=== PATIENT | female | born 1980 | race Caucasian/White ===

== ENCOUNTER → 2017-11-22 | Outpatient (CLI) | payer OTHER ==
[~2017-11-22] VITALS: Ht 167.6 cm; Wt 112.8 kg
[~2017-11-22] MED LIST: CLON0.5T3 PO; MULTTAB58 PO; OMEG10007 PO; PRED20TA PO; SERT-234 PO; SERT50TA PO; TRAZ50TA35 PO; XNX25 PO; b complex PO
[2017-11-22 14:54] VITALS: BP 110/76; PULSE 94; Ht 167.6 cm; Wt 112.8 kg
== END | disposition home or self-care (01) ==
LOC: C.NEUR 14:20
PROVIDERS: ATTEND Internal Medicine Pulmonary Disease
DX: R53.83 Other fatigue (principal); F45.8 Other somatoform disorders; F31.81 Bipolar II disorder; F51.01 Primary insomnia; G47.19 Other hypersomnia

== ENCOUNTER → 2017-12-03 | Outpatient (CLI) | payer OTHER ==
--- NOTE | 2017-12-04 06:03 | PAP/PSG TECHNICIAN REPORT ---
[facility] Laboratory Director Polysomnogram Report Study name: None Report date: 12/04/2017 Study date: 12/03/2017 Referring Physician: DR. MADRIGAL Name: CRISTINA SOSA Interpreting Physician: Osmany Madrigal M.D. Date of : 1980 Laboratory Director: BRANDON De La Paz. Sex: Female Age: 37 StudyType: PSG Weight: 248 lbs 16 inches Height: 37 years, Height 5' 6" Neck Circum: BMI: 40.02 Medications: BUSPIRONE HCL 15 MG, CLONAZEPAM 1 MG, LORATADINE 10 MG, SERTRALINE HCL 100 MG, VIT D 1999 Patient History PATIENT HAS HISTORY OF MAJOR DEPRESSION AND BIPOLAR DISORDER. ALSO HAS HISTORY OF FATIGUE, INSOMNIA AND EXCESSIVE DAYTIME SLEEPINESS. SHE IS HERE TODAY FOR AN EVALUATION FOR RAÚL. ESS= 8 RM 6 Parameters Monitored NPSG: E1-M2, E2-M1, Fp1-M2, Fp2-M1, F3-M2, F4-M2, F4-M1, C3-M2, C4-M2, C4-M1, O1-M2, O2-M2, O2-M1, T3-M2, T4-M1, P3-M2, P4-M1, CHIN1, CHIN2, HR, EKG, Legs, PFLOW, SNOR, FLOW, CFLOW, Tidal Volume, THOR, ABDO, SpO2, PLTH, CPRESS, ETCO2 Wave, ETCO2, pH Sleep Architecture Sleep Stages Time at Lights Off 10:40:22 PM STAGES Time (min.) TST (%) Time at Lights On 5:43:22 AM Wake 54.0 -- Total Recording Time (TRT) 423.50 min. N1 9.0 2 Total Sleep Period (TSP) 384.0 min. N2 265.0 72 Total Sleep Time (TST) 369.0min. N3 76.0 21 Awake Time 54.5 min. REM 19.0 5 Wake after Sleep Onset 22.5 min. Sleep Efficiency (SE) 87 % Sleep Onset Latency (HEIDI) 31.5 min. Number of Stage 1 Shifts None Awakenings 7 Stage Changes 35 Number of REM periods 1 REM 19.0 5 REM Latency 365.0 min. NREM 350.0 95 Body Position Analysis Supine Right Left Side Prone Vertical Total Sleep Time (min.) 14.3 210.0 159.0 369.00 0.0 0.0 Total Sleep Time (%) 0% 57% 43% 100 0% N/A% Total Sleep Time REM (min.) 0.0 19.0 0.0 None 0.0 0.0 Total Sleep Time NREM (min.) 0.0 191.0 159.0 None 0.0 0.0 Intermittent Wake (min.) 14.3 32.6 7.1 None 0.0 0.0 Total Sleep Period (%) 0% None None None None None Arousals Myoclonus (PLM) * Events Count Index Events Count Index Spontaneous 13 2 Events Awake (PLMW) 26 28.9 Respiratory 1 0.2 Events Asleep w/ Arousal (PLMA) 13 2.1 PLM 13 2 Events Asleep w/o Arousal (PLMS) 161 26.2 Snoring 5 1 Total Asleep 174 28.3 Total 32 5 Total 200 28 Respiratory Analysis * CA OA MA CH H RERA Total Count 1 0 0 0 18 1 19 Index 0.2 0.0 0.0 0 2.9 0 3.3 Mean Duration 12.0 0.0 0.0 0.00 17.4 15.6 17.0 Longest Duration 12.0 0.0 0.0 0.00 0.0 15.6 31.3 Respiratory Event Summary Total Supine ~Supine Right Left Prone REM NREM Apneas Count 1 N/A 1 1 0 N/A 0 1 Index 0.2 N/A 0 0.3 0.0 N/A 0 0 Hypopneas (4% Desat) Count 18 N/A 18 0 18 N/A 0 18 Index 2.9 N/A 3 0.0 6.8 N/A 0.0 3.1 Apneas & All Hypopneas Count 19 N/A 19 1 18 N/A 0 19 Index 3.1 N/A 3 0 7 N/A 0.0 3.3 Respiratory Events (Advertising Rep+All Hyp+RERA) Count 19 N/A 20 1 19 N/A 0 19 Index 3.3 N/A 3 0.3 7.2 N/A 0.0 3.4 Respiratory Related Arousal Count 1 N/A 1 0 1 N/A 0 1 Index 0.2 N/A 0 0 0 N/A 0 0 Snoring Analysis Supine Right Left Prone REM NREM Total Snore duration 34.7 min Snores count N/A 1,394 94 N/A 0 1,488 1,488 Snore mean duration 1.4 Sec Snores index N/A 398 35 N/A 0.0 255.1 242.0 TST with snoring (%) 9.4% Desaturation Event Summary: Minimum %SpO2 Event Count Mean/Min/Max Duration(sec.) Desaturation Index % Time In Bed > 90 19 32.5 / 13.5 / 58.0 2.8 98.0 86 - 90 0 N/A 0.0 2.0 81 - 85 0 N/A 0.0 0.0 76 - 80 0 N/A 0.0 0.0 71 - 75 0 N/A 0.0 0.0 66 - 70 0 N/A 0.0 0.0 61 - 65 0 N/A 0.0 0.0 56 - 60 0 N/A 0.0 0.0 51 - 55 0 N/A 0.0 0.0 < 50 0 N/A 0.0 0.0 Total REM NREM Awake <50% 0.0 min. 0.0 min. 0.0 min. 0.0 min. 51 - 60% 0.0 min. 0.0 min. 0.0 min. 0.0 min. 61 - 70% 0.0 min. 0.0 min. 0.0 min. 0.0 min. 71 - 80% 0.0 min. 0.0 min. 0.0 min. 0.0 min. 81 - 90% 8.3 min. 0.0 min. 8.3 min. 0.1 min. 91 - 100% 414.4 min. 19.0 min. 341.7 min. 53.7 min. Average 93 93 93 96 Minimum SpO2 87 91 87 90 Desaturation Event Index 2.7 0.0 3.1 1.1 # Desat. Events below 89% 6 N/A 6 N/A Time(%) with Saturation below 89% 0.2 0.0 0.2 0.0 Time(min.) with Saturation below 89% 1.0 0.0 1.0 0.0 Time (mins) REM (mins) NREM (mins) % of TST SpO2 Below 90% 15 N/A N15 0.8 SpO2 Below 88% 3 0 0 0 Heart Rate Analysis Min (bpm) Max (bpm) Average (bpm) Awake 57 127 74 NREM 58 103 74 REM 70 94 82 Overall 58 103 74 Supplemental O2 Values Minimum O2 level: None Value Start Time End Time Laboratory Director Comments Mrs. Sosa slept in the right, left and supine positions. No cardiac arrhythmia noted. Leg movements noted. No bruxism noted. Snoring was noted and scored as a 4 on a scale of 1 through 5. (0=no snoring, 5=snoring loud enough to be heard through a closed door or down the riggs way) Mrs. Sosa awoke to use the restroom 0 times during the night. Mrs. Sosa stated I slept as well as I do when I am in my own bed. The final report will be interpreted and signed by a sleep physician. The completed physician report will then be placed in the patient medical record. Therapy (cm H2O) 0 TIB (min.) 423.0 TST (min.) 369.0 Sleep Onset (min.) 31.5 REM Onset From Sleep (min.) 365.0 Sleep Efficiency % 87 Wakefulness (%) 13 Wakefulness (min.) 54.5 NREM 1 (%) 2 NREM 1 (min.) 9.0 NREM 2 (%) 72 NREM 2 (min.) 265.0 NREM 3 (%) 21 NREM 3 (min.) 76.0 REM (%) 5 REM (min.) 19.0 # Arousals 32 Arousal Index 5 # Snore 1,488 Snore Index 242.0 AHI 3.1 AHI Supine N/A AHI Non-Supine 3 NREM AHI 3.3 REM AHI 0.0 RDI 3.3 # Obstructive Apnea 0 # Central Apnea 1 # Mixed Apnea 0 # Hypopneas 18 RERAs 1 Total Respiratory Events 21 Time Below SpO2 89% (min.) 1.0 Mean NREM SpO2 (%) 93 Mean REM SpO2 (%) 93 Mean Sleep SpO2 (%) 93 Min NREM SpO2 (%) 87 Min REM SpO2 (%) 91 Position Supine (min.) 14.3 Position Non-supine (min.) 369.0 LM Index Sleep 28.3 LM Index NREM 27.1 LM Index REM 50.5 Mean Heart Rate (bpm) 74 Min Heart Rate (bpm) 58
--- NOTE | 2017-12-07 13:56 | POLYSOMNOGRAPH REPORT ---
CLINICAL DATA: A 37-year-old female with BMI of [address] Ayoub and myself for fatigue, insomnia, excessive daytime sleepiness, depression, and bipolar disorder. Her Joseph sleepiness score is 8/24. SLEEP ARCHITECTURE: Total sleep period was 384 minutes. Total sleep time was 369 minutes divided between 350 minutes of non-REM sleep and 19 minutes of REM sleep. Sleep latency was delayed at 31.5 minutes. REM latency was delayed at 365 minutes. Sleep efficiency was 87%. Wake after sleep onset was 22.5 minutes. Sleep consisted of stage N1 2%, stage N2 72%, stage N3 21%, and REM 5%. AROUSAL DATA: 32 arousals were recorded for an index of 5 per hour. PLM DATA: Mildly elevated limb movements during sleep were noted. There were 174 limb movements in sleep for an index of 28.3 per hour with arousal index of 2.1 per hour. RESPIRATORY DATA: There was no evidence of clinically significant sleep apnea seen. The AHI was 3.1. There was 1 central apneic episode, 12 seconds in duration. There were 18 hypopneic episodes with mean duration of 17.4 seconds. OXIMETRY DATA: No significant hypoxemia was seen. Oxygen dco was 87%. Mean saturation was 93%. Time below 88% was 3 minutes. EKG: Heart ranged from 58-103 beats per minute. No arrhythmias were noted. BANKING MANAGEMENT CONSULTING MANAGER'S COMMENTS: The patient slept in the right, left, and supine positions. Snoring was severe, rated 4 on a scale of 1-5. Leg movements were noted throughout the night, which did cause arousal intermittently through the night. IMPRESSION: 1. No evidence of clinically significant sleep apnea/hypopnea or nocturnal hypoxemia. 2. Mildly delayed sleep onset consistent with insomnia. 3. Mildly elevated limb movements during sleep, possibly consistent with PLMD. RECOMMENDATIONS: The patient should continue to practice good sleep hygiene. She should continue on her medications for her depression and insomnia. Consideration workup and treatment for PLMD may be considered. Clinical correlation is needed. ANTHONY
== END | disposition home or self-care (01) ==
LOC: C.NEUR 20:00
PROVIDERS: ATTEND Internal Medicine Pulmonary Disease
DX: F31.81 Bipolar II disorder (principal); F45.8 Other somatoform disorders; R53.83 Other fatigue; F51.01 Primary insomnia

== ENCOUNTER → 2017-12-20 | Outpatient (CLI) | payer OTHER ==
[~2017-12-20] VITALS: Ht 165.1 cm; Wt 109.1 kg
[2017-12-20 15:23] VITALS: BP 135/76; PULSE 87; Ht 165.1 cm; Wt 109.1 kg
== END | disposition home or self-care (01) ==
LOC: C.NEUR 14:50
PROVIDERS: ATTEND Physician Assistant Medical
DX: G47.19 Other hypersomnia (principal); G47.00 Insomnia, unspecified; G47.61 Periodic limb movement disorder

== ENCOUNTER 2021-02-02 11:28 | Observation (INO) ==
--- NOTE | 2021-01-09 09:08 | PAT Medication Instructions ---
Medication Instructions Date of Service January 09, 2021 Home Medications cholecalciferol (vitamin D3) 50 mcg (2,000 unit) tablet 2,000 unit PO QAM clonazepam 1 mg tablet 1 mg PO QAM sertraline 100 mg tablet 200 mg PO HS trazodone 100 mg tablet 100 mg PO HS buspirone 20 mg PO TID lactobacillus comb no.10 [Probiotic] 20,000 mmu cells PO QAM multivitamin 1 tab PO QAM omega-3 fatty acids [[place] 3 Fish Oil] 2,000 mg PO QAM STOP taking 2 weeks before surgery (or as soon as possible if surgery is within 2 weeks) omega-3 fatty acids [Gary 3 Fish Oil] 2,000 mg PO QAM DO NOT take the morning of surgery cholecalciferol (vitamin D3) 50 mcg (2,000 unit) tablet 2,000 unit PO QAM lactobacillus comb no.10 [Probiotic] 20,000 mmu cells PO QAM multivitamin 1 tab PO QAM Take morning of surgery With a small sip of water, OTHERWISE NOTHING TO EAT OR DRINK AFTER MIDNIGHT: clonazepam 1 mg tablet 1 mg PO QAM buspirone 20 mg PO TID Take evening before surgery sertraline 100 mg tablet 200 mg PO HS trazodone 100 mg tablet 100 mg PO HS buspirone 20 mg PO TID Other Notes If you have any questions please call us at [phone] or [phone] or [phone] or [phone]
--- NOTE | 2021-01-09 13:21 | Anesthesiology Consultation ---
Date of Service January 09, 2021 Assessment & Plan (1) Encounter for pre-operative examination: - COVID screening: Per assessment on 01/09: Travel screen negative, no known COVID-19 positive contacts or current COVID-19 related symptoms. Patient fully vaccinated. Surgeon arranging preop COVID testing. Awaiting results. - Check test AM DOS Chart Review Chart Review: Acceptable Risk for Surgery and Patient seen in Pre Admission Testing Teaching & Discussion Pre-Anesthesia Teaching/Discussion Notes: Instructed NPO after midnight before surgery,except medications with 15 cc of water. Medication instructions provided according to the PAT guidelines. History Surgery Operation Date: 02/02/21 07:30 Proposed Procedures p Robotic Total Laparoscopic Hysterectomy - Tracee Mcintyre, Height/Weight Height: 5 ft 6 in Weight: 124.9 kg Allergies Allergy/AdvReac Type Severity Reaction Status Date / Time No Known Drug Allergies Allergy Verified 01/09/21 11:18 Medications Home Medications Medication Instructions Recorded Confirmed Last Taken cholecalciferol (vitamin D3) 50 2,000 unit PO QAM tab 06/05/19 01/09/21 Unknown mcg (2,000 unit) tablet clonazepam 1 mg tablet 1 mg PO QAM tab 06/05/19 01/09/21 Unknown sertraline 100 mg tablet 200 mg PO HS tab 06/05/19 01/09/21 Unknown trazodone 100 mg tablet 100 mg PO HS tab 06/05/19 01/09/21 Unknown buspirone 20 mg PO TID 12/31/20 01/09/21 Unknown lactobacillus comb no.10 20,000 mmu cells PO QAM 12/31/20 01/09/21 Unknown [Probiotic] multivitamin 1 tab PO QAM 12/31/20 01/09/21 Unknown omega-3 fatty acids [[place] 3 Fish 2,000 mg PO QAM 12/31/20 01/09/21 Unknown Oil] Past Medical History Medical History Anxiety 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) based 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/personal hx but no definitive diagnosis History of anemia History of anorexia nervosa Pt does not want to know current weight History of depression Insomnia Morbid obesity Past Family History Family History Mother Endometrial cancer Hypertension Hypothyroidism Breast cancer Bleeding disorder Endometriosis Grandmother (Maternal) Heart disease Dyslipidemia Hypothyroidism Grandmother (Paternal) Heart disease Dyslipidemia Grandfather (Maternal) Heart disease Dyslipidemia Grandfather (Maternal) Heart disease Dyslipidemia Aunt Breast cancer Paternal Past Surgical History Surgical History H/O wisdom tooth extraction History of electroconvulsive therapy (~2017) done with general anesthesia --> successful treatment Past Anesthesia History No Hx of Anesthesia Complications (except PONV) and No Family Hx of Anesthesia Complications History of PONV No Hx of Motion Sickness and History of PONV Social History Smoking Status: Never smoker Do You Dip or Chew Tobacco: No Hx Alcohol Use: Yes alcohol intake frequency: holidays/special occasions only Hx Substance Use: No substance use type: does not use Review of Systems Patient denies chest pain, shortness of breath, dyspnea on exertion, fever, chills, cough, wheezing, palpitations. Physical Exam Vital Signs VITALS BP 123/81 P 76 TEMP 98.4 SP02 96%RA RESP 16 PHYSICAL Full cervical extension range of motion. Full TMJ range of motion. TMD 3.5 finger breaths Mallampati Score 2 Dentition: intact Lungs: clear throughout to auscultation Cardiac: regular rate and rhythm, no murmurs noted Spine: normal Extremities: no edema Patient states she will remove facial piercing for DOS Testing Laboratory Results 01/09/21 14:02 01/09/21 14:02 Urine Color Dark Yellow 01/09/21 Unknown Urine Appearance Turbid (Clear) A 01/09/21 Unknown Urine pH 5.0 (4.5-7.5) 01/09/21 Unknown Ur Specific [place] 1.026 (1.000-1.030) 01/09/21 Unknown Urine Protein Negative (Negative) 01/09/21 Unknown Urine Glucose (UA) Negative (Negative) 01/09/21 Unknown Urine Ketones Trace (Negative) H 01/09/21 Unknown Urine Nitrite Negative (Negative) 01/09/21 Unknown Ur Leukocyte Esterase Negative (Negative) 01/09/21 Unknown Urine WBC (Auto) 1-5 /hpf (0-5) 01/09/21 Unknown Urine RBC (Auto) 0-4 /hpf (0-4) 01/09/21 Unknown U Hyaline Cast (Auto) 1-5 /lpf (0-5) 01/09/21 Unknown U Epithel Cells (Auto) 10-20 /lpf (0-5) H 01/09/21 Unknown Urine Bacteria (Auto) Negative (Negative) 01/09/21 Unknown Blood Type O Positive 01/09/21 14:02 Antibody Screen NEGATIVE 01/09/21 14:02 01/09/21 Unknown Urine Culture - Final Urine,Clean Catch More than three types of organisms present, all low counts mixed probable skin luci. No further identifications or sensitivities to follow. Electrocardiogram Date: 01/14/21 Findings: + NSR @ (55)
[2021-01-09 15:39] LABS: Basophils # (auto) 0.04 K/uL (0-0.2); Basophils % (auto) 0.6 %; Eosinophils # (auto) 0.11 K/uL (0-0.5); Eosinophils % (auto) 1.5 %; Hematocrit (blood only) 37.3 % (37-47); Hemoglobin 13.1 g/dL (12.0-16.0); Immature Granulocytes # (auto) 0.01 K/uL (0.00-0.02); Immature Granulocytes % (auto) 0.1 %; Lymphocytes # (auto) 2.49 K/uL (1.2-3.4); Lymphocytes % (auto) 34.3 %; Mean Corpuscular Hemoglobin 31.4 pg (25-34); Mean Corpuscular Hgb Conc 35.1 g/dL (32-36); Mean Corpuscular Volume 89.4 fL (80-100); Mean Platelet Volume 10.3 fL (7.4-10.4); Monocytes # (auto) 0.64 K/uL (0.11-0.59); Monocytes % (auto) 8.8 %; Neutrophils # (auto) 3.97 K/uL (1.4-6.5); Neutrophils % (auto) 54.7 %; Platelet Count 304 K/uL (130-400); RDW Coefficient of Variation 13.8 % (11.5-14.5); RDW Standard Deviation 45.3 fL (36.4-46.3); Red Blood Count 4.17 M/uL (4.2-5.4); White Blood Count 7.26 K/uL (4.8-10.8)
[2021-01-09 16:07] LABS: BUN Creatinine Ratio 17.1 (10-20); Calcium 9.3 mg/dl (8.5-10.1); Creatinine Clr Calc Pharmacy 120.2 ml/min; Est GFR (African American) 100.8 ml/min; Est GFR (Non-African American) 86.9 ml/min; Potassium 4.2 mmol/L (3.5-5.1)
[2021-01-09 16:14] LABS: Appearance Urine Turbid (Clear); Bacteria Urine Automated Negative (Negative); Bilirubin Urine Negative (Negative); Blood Urine Negative (Negative); Color Urine Dark Yellow; Glucose Urine UA Negative (Negative); Ketones Urine Trace (Negative); Leukocyte Esterase Urine Negative (Negative); Nitrite Urine Negative (Negative); Protein Urine Negative (Negative); RBC Urine Automated 0-4 /hpf (0-4); Specific Gravity Urine 1.026 (1.000-1.030); Urobilinogen Urine Negative (Negative)
[~2021-02-02 11:28] MED LIST changes: -CLON0.5T3 PO; +LR 15ML/HR IV SCH; -MULTTAB58 PO; -OMEG10007 PO; -PRED20TA PO; -SERT-234 PO; -SERT50TA PO; -TRAZ50TA35 PO; -XNX25 PO; -b complex PO
--- NOTE | 2021-02-02 15:24 | History & Physical Bridge Note ---
Date of Service February 02, 2021 History & Physical Bridge Note I have examined the patient, reviewed the History & Physical and in the interval since the performance of the History & Physical I have noted the following changes of clinical significance: no changes noted
[2021-02-02] MEDS ORDERED: ePHEDrine sulfate 50 MG/ML AMP IV PRN (15:31)
[2021-02-02] MEDS ORDERED: ONDANSETRON INJ 2 MG/ML 2 ML VIAL IV PRN ×2 (15:31→18:48)
[2021-02-02] MEDS ORDERED: PROMETHAZINE HCL 6.25 MG in SODIUM CHLORIDE 0.9% 50 ML IV PRN (15:31)
[2021-02-02] MEDS ORDERED: ATROPINE SULFATE 0.1 MG/ML 10ML SYR IV PRN (15:31)
[2021-02-02] MEDS ORDERED: HYDROmorphone INJ 2 MG/ML SYR/VIAL IV PRN (15:31)
[2021-02-02] MEDS ORDERED: fentaNYL citrate 100 MCG/2 ML VIAL ONE ×3 (15:32→17:33)
[2021-02-02] MEDS ORDERED: BUPIVACAINE 0.5 % 5 MG/1 ML MPF 30ML VIAL ONE (15:36)
[2021-02-02] MEDS ORDERED: METHYLENE BLUE 0.5% 10 ML VIAL ONE (15:36)
[2021-02-02] MEDS ORDERED: LIDOCAINE 2% 2 ML VIAL/AMP(20MG/ML) INFIL ONE (15:37)
[2021-02-02] MEDS ORDERED: ROCURONIUM BROMIDE 10 MG/ML 5 ML VIAL IV ONE ×4 (15:37→18:06)
[2021-02-02] MEDS ORDERED: PROPOFOL IV EMULSION 10 MG/ML 20 ML VIAL IV ONE (15:37)
[2021-02-02] MEDS ORDERED: NEOSTIGMINE METHYLSULFATE 1 MG/ML 10ML VIAL ONE (15:37)
[2021-02-02] MEDS ORDERED: GLYCOPYRROLATE 0.2 MG/ML VIAL ONE (15:37)
[2021-02-02] MEDS ORDERED: ONDANSETRON INJ 2 MG/ML 2 ML VIAL ONE ×2 (15:37→18:06)
[2021-02-02] MEDS ORDERED: MIDAZOLAM HCL 1 MG/ML 2ML VIAL ONE (15:38)
[2021-02-02] MEDS ORDERED: TISSEEL FIBRIN SEALANT 10ML TOP ONE (17:14)
[2021-02-02] MEDS ORDERED: KETOROLAC 30 MG/ML VIAL ONE (18:06)
[2021-02-02] MEDS ORDERED: LABETALOL HCL IV 5 MG/ML 20ML IV ONE (18:06)
--- NOTE | 2021-02-02 18:42 | Operative Report ---
PG Post Operative Report Pre & Post Diagnosis Operation Date: 02/02/21 13:30 Pre-Op Diagnosis: Gender Dysphoria Post-Op Diagnosis: Gender Dysphoria I identified the patient and participated in the time-out.: Yes Procedure Operation Date: 02/02/21 13:30 Actual Procedures p Robotic Total Laparoscopic Hysterectomy, Bilateral Salpingectomy, Cystoscopy - Tracee Mcintyre DO Surgeon Tracee Mcintyre DO Fork Repairer Torie Gamble MD Estimated Blood Loss 10 Findings Consistent with Post-Op Diagnosis Normal appearing uterus, tubes, ovaries. Specimens uterus, bilateral fallopian tubes. Drains jaime, clear yellow Anesthesia Type General Complications none Disposition Accompanied Patient To Recovery: No Disposition: Recovery Room Indications 40yo G0 desiring hysterectomy as part of gender confirmation, desire to end menses permanently and without hormones, and h/o JAYASHREE/ASCUS pap. Description of Procedure The patient was seen in the preoperative holding area, where risks benefits and alternatives to surgery reviewed. She elected to proceed with the case. She had previously signed informed consent under no duress in the office. The patient was taken to the operating room, general anesthesia was administered. She was prepared and draped in the usual sterile fashion in the dorsal lithotomy position with feet in yellowfin stirrups. Timeout was confirmed. Jaime catheter was placed in the bladder. A weighted speculum was placed in the vagina, the cervix was visualized and its anterior lip was grasped with single- tooth tenaculum. A stay suture of 0 Vicryl at the 3:00 location on the cervix was placed. The uterine manipulator was placed, and suture tied into place. Gloves were then changed and attention was turned to the abdomen. A supraumbilical incision was made with a scalpel, and using optical scope and direct visualization, the umbilical trocar was placed into the abdomen. Intra- abdominal placement was confirmed visually, and the abdomen was insufflated with CO2 gas to 15 mmHg. The patient was placed in steep Trendelenburg position, and the pelvis was visualized. Pictures were taken. Additional trochars were placed under direct visualization, for a total of 5 incisions. The robot was docked. Salpingectomy was performed first, using cautery to transect the fallopian tube from its mesosalpinx. This was then transected from the uterus, and placed in the pelvic cul-de-sac for later retrieval. Bilateral ureters were visualized in the pelvis peristalsing. Next, the left utero-ovarian ligament was coagulated and transected. The left round ligament was coagulated and transected and the left broad ligament was skeletonized. In a similar fashion, the right sides were taken down. The bladder flap was created, and the anterior leaf of the broad ligament was dissected away from the anterior aspect of the uterus and cervix. The bilateral uterine vessels were coagulated and transected. Next, the uterus was transected from the vagina in a circumferential incision. The uterus was then delivered through the vagina, as well as both fallopian tubes. These were sent to pathology. Coagulation was used to achieve excellent hemostasis. The pelvis was irrigated and suctioned and excellent hemostasis was observed. The vaginal cuff was reapproximated using V-Loc suture in a running stitch. Again, the pelvis was suctioned and irrigated and noted to be hemostatic. Cystoscopy was performed, bilateral ureters were visualized with positive urine flow jets. The bladder was visualized and found to be normal with no trauma. Tisseel coagulant was used across the raw edges of the vaginal cuff. The abdomen was desufflated, trochars were removed. The supraumbilical incision was brought together with a deep subcu stitch of 0 Vicryl. All incisions were made hemostatic with Bovie cautery, and the skin was closed using 4-0 Vicryl. Half percent plain Marcaine was used as local anesthetic at each incision site. The incisions were all covered with Dermabond glue. The patient was awoken from anesthesia, taken to the recovery area in stable and good condition. She tolerated the procedure well. I attest to the content of the Intraoperative Record and any orders documented therein. Any exceptions are noted below. DAIRY PROCESSING SUPERVISOR Major Procedure Codes Hysterectomy 58289 TLH <250g +S/O
[2021-02-02] MEDS ORDERED: SIMETHICONE 80 MG CHEW PO PRN (18:48)
[2021-02-02] MEDS ORDERED: KETOROLAC 30 MG/ML VIAL IV PRN (18:48)
[2021-02-02] MEDS ORDERED: IBUPROFEN 600 MG TAB PO PRN (18:48)
[2021-02-02] MEDS ORDERED: oxyCODONE/ACETAMINOPHEN 5mg/325mg TAB PO PRN ×2 (18:48)
[2021-02-02] MEDS: fentaNYL citrate 100 MCG/2 ML VIAL IV PRN ×4 (18:53→19:08)
--- NOTE | 2021-02-02 19:22 | Anesthesiology Progress Note ---
Date of Service February 02, 2021 Anesthesia Post Procedure Vital Signs Vital Signs: Temp Pulse Pulse Resp BP Pulse Ox 02/02/21 19:15 79 13 143/81 H 93 02/02/21 19:05 98 H 12 130/75 94 02/02/21 18:55 86 19 147/80 H 100 02/02/21 18:47 36.6 C 95 H 14 159/77 H 99 02/02/21 11:30 36.9 C 92 H 18 156/82 H 97 Pain Intensity Lower Abdomen: Pain Intensity: 3 Transfer of Care Handoff Completed per policy Notes Mental Status: alert / awake / arousable Patient Amnestic to Procedure: Yes Nausea / Vomiting: adequately controlled Pain: adequately controlled Airway Patency, RR, SpO2: stable & adequate BP & HR: stable & adequate Hydration State: stable & adequate Anesthetic Complications: no major complications apparent
[2021-02-02] MEDS ORDERED: DOCUSATE SODIUM 100 MG CAP PO SCH (21:00)
--- NOTE | 2021-02-03 22:13 | Discharge Summary ---
Date of Service February 03, 2021 Discharge Data Procedures Performed Operation Date: 02/02/21 13:30 Actual Procedures p Robotic Total Laparoscopic Hysterectomy, Bilateral Salpingectomy, Cystoscopy - Tracee Mcintyre DO s Cystoscopy - Tracee Mcintyre DO Hospital Course (1) Atypical glandular cells of undetermined significance (JAYASHREE) on cervical Pap smear: (2) Menorrhagia: Patient underwent robotic assisted total laparoscopic hysterectomy with bilateral salpingectomy with cystoscopy, observed until she met postop milestones, discharged home same day. Followup 2 and 6 weeks postop in office. Rx percocet sent to pharmacy. Coding Level of Care Code None Diagnoses Atypical glandular cells of undetermined significance (JAYASHREE) on cervical Pap smear R87.619 Menorrhagia N92.0
== END 2021-02-02 23:55 | disposition home or self-care (01) ==
LOC: 4N 11:28 → ASU 11:28